=== PATIENT | female | born 1990 | race Caucasian/White ===

== ENCOUNTER 2017-11-17 09:46 | Emergency (ER) | payer SELFPAY ==
[~2017-11-17] VITALS: Ht 167.6 cm; Wt 62.9 kg
[2017-11-17 09:48] VITALS: BP 100/66
[2017-11-17] MEDS ORDERED: LIDOCAINE-MPF 1%, 5ML ONE (10:15)
[2017-11-17] MEDS ORDERED: LIDOCAINE-MPF 1%, 5ML INFIL ONE (10:30)
== END 2017-11-17 10:36 | disposition home or self-care (01) ==
LOC: ED 10:35
DX: L02.415 Cutaneous abscess of right lower limb (principal)
CPT/HCPCS: 10060; 99283